=== PATIENT | male | born 1995 | race Caucasian/White ===

== ENCOUNTER 2017-10-08 06:06 | Emergency (ER) | payer MEDICAID, SELFPAY ==
[2017-10-08 06:13] VITALS: BP 155/87; PULSE 92; RESP 16; TEMP 36.8; O2SAT 94; BMI 46.3
--- NOTE | 2017-10-08 06:49 | HMH.EDEAR ---
ED Disposition Clinical Impression: Otitis media Qualifiers: Otitis media type: suppurative Chronicity: acute Laterality: right Recurrence: not specified as recurrent Spontaneous tympanic membrane rupture: without spontaneous rupture Qualified Code(s): H66.001 - Acute suppurative otitis media without spontaneous rupture of ear drum, right ear Disposition: Home, Self-Care Condition on Discharge: Good Instructions: DI for Otitis Media (Middle Ear Infection)-Child Additional Instructions: use meds and see pcp for follow up Prescriptions: cephALEXin [Keflex 500mg Cap] 500 mg PO TID #30 cap Referrals: Mihai Watts [Primary Care Provider] - - Critical Care Critical Care Time: No Attestation: On 10/08/17, the high probability of a clinically significant, sudden or life threatening deterioration of the following system(s) required my full and direct attention, intervention and personal management. The time I documented below is in addition to time spent performing reported procedures but includes the following listed in this critical care notation. Medical Decision Making - Medical Records Medical records reviewed: Yes: I reviewed the patient's medical records. Vital Signs: 10/08/17 06:13 Temperature 98.3 F Temperature Source Oral Pulse Rate [Right Brachial] 92 H Respiratory Rate 16 Blood Pressure [Right Arm] 155/87 Blood Pressure Mean [Right Arm] 109 Blood Pressure Source [Right Arm] Automatic Cuff Blood Pressure Position [Right Arm] Sitting 02 Sat by Pulse Oximetry 94 L Oxygen Delivery Method Room Air - Lab Data Lab results reviewed: Yes: I reviewed the patient's lab results. Orders (Tests/Meds): ORDERS Category Date Time Status Rapid Influenza A&B Antigens Stat Lab 10/08/17 06:27 Received - [place] Inquiry Pt receiving controlled substance: No Ear HPI - General Chief complaint: Ear Stated complaint: Right ear pain Time Seen by Provider: 10/08/17 06:49 Mode of Arrival: Ambulatory Source of Information: Patient, Relative, Medical Record Limitations: No Limitations Description of Symptoms (Recalled from ER Triage Doc. by RN): sinus congestion, sick for a week , right ear pain since this am - History of Present Illness HPI Narrative: 2 day hx of rt sided ear pain with uri sx but no rash or cough MD Complaint: ear pain Location: right ear Duration: intermittent Severity: moderate Relieving factors: nothing Context: recent illness Discharge from ear: no - Related Data Previous Rx's Medication Instructions Recorded cephALEXin [Keflex 500mg Cap] 500 mg PO TID #30 cap 10/08/17 Allergies Allergy/AdvReac Type Severity Reaction Status Date / Time No Known Allergies Allergy Unverified 09/23/17 14:57 [facility] History I have reviewed the patient's past medical history: Yes Medical History: Denies:: Cancer, Diabetes Mellitus Type 1, Diabetes Mellitus Type 2, MRSA Amputation: No - *Social History Educational Level: Completed High School Smoking Status: Never smoker Alcohol Intake: never - Psychiatric History Expresses thoughts of harming self/others: None Suicide Plan Description: No Plan ROS Obtained: Yes All systems reviewed & no additional complaints except as noted - Constitutional Denies fever(s) - Eyes Denies change in vision - ENT Reports ear pain, Denies ear discharge, Denies sore throat - Cardiovascular Denies chest pain - Respiratory Denies cough - Gastrointestinal Denies vomiting - Neurologic Denies dizziness Physical Exam - General General appearance: alert, in no apparent distress - Head Head exam: atraumatic - Eye Eye exam: Present: PERRL, EOMI - ENT ENT exam: Present: mucous membranes moist, other (rt tm red bulging ) - Neck Neck exam: Present: full ROM - Respiratory Respiratory exam: Absent: respiratory distress - Cardiovascular Cardiovascular exam: Present: regular rate - Abdominal Exam Abdominal
--- NOTE | 2017-10-08 06:54 | ED_ITS ---
ED Disposition Clinical Impression: Otitis media Qualifiers: Otitis media type: suppurative Chronicity: acute Laterality: right Recurrence: not specified as recurrent Spontaneous tympanic membrane rupture: without spontaneous rupture Qualified Code(s): H66.001 - Acute suppurative otitis media without spontaneous rupture of ear drum, right ear Disposition: Home, Self-Care Condition on Discharge: Good Instructions: DI for Otitis Media (Middle Ear Infection)-Child Additional Instructions: use meds and see pcp for follow up Prescriptions: cephALEXin [Keflex 500mg Cap] 500 mg PO TID #30 cap Referrals: Mihai Watts [Primary Care Provider] - - Critical Care Critical Care Time: No Attestation: On 10/08/17, the high probability of a clinically significant, sudden or life threatening deterioration of the following system(s) required my full and direct attention, intervention and personal management. The time I documented below is in addition to time spent performing reported procedures but includes the following listed in this critical care notation. Medical Decision Making - Medical Records Medical records reviewed: Yes: I reviewed the patient's medical records. Vital Signs: 10/08/17 06:13 Temperature 98.3 F Temperature Source Oral Pulse Rate [Right Brachial] 92 H Respiratory Rate 16 Blood Pressure [Right Arm] 155/87 Blood Pressure Mean [Right Arm] 109 Blood Pressure Source [Right Arm] Automatic Cuff Blood Pressure Position [Right Arm] Sitting 02 Sat by Pulse Oximetry 94 L Oxygen Delivery Method Room Air - Lab Data Lab results reviewed: Yes: I reviewed the patient's lab results. Orders (Tests/Meds): ORDERS Category Date Time Status Rapid Influenza A&B Antigens Stat Lab 10/08/17 06:27 Received - [place] Inquiry Pt receiving controlled substance: No Ear HPI - General Chief complaint: Ear Stated complaint: Right ear pain Time Seen by Provider: 10/08/17 06:49 Mode of Arrival: Ambulatory Source of Information: Patient, Relative, Medical Record Limitations: No Limitations Description of Symptoms (Recalled from ER Triage Doc. by RN): sinus congestion, sick for a week , right ear pain since this am - History of Present Illness HPI Narrative: 2 day hx of rt sided ear pain with uri sx but no rash or cough MD Complaint: ear pain Location: right ear Duration: intermittent Severity: moderate Relieving factors: nothing Context: recent illness Discharge from ear: no - Related Data Previous Rx's Medication Instructions Recorded cephALEXin [Keflex 500mg Cap] 500 mg PO TID #30 cap 10/08/17 Allergies Allergy/AdvReac Type Severity Reaction Status Date / Time No Known Allergies Allergy Unverified 09/23/17 14:57 [facility] History I have reviewed the patient's past medical history: Yes Medical History: Denies:: Cancer, Diabetes Mellitus Type 1, Diabetes Mellitus Type 2, MRSA Amputation: No - *Social History Educational Level: Completed High School Smoking Status: Never smoker Alcohol Intake: never - Psychiatric History Expresses thoughts of harming self/others: None Suicide Plan Description: No Plan ROS Obtained: Yes All systems reviewed & no additional complaints except as noted - Constitutional Denies fever(s) - Eyes
[2017-10-08 07:28] VITALS: BP 132/83; PULSE 86; RESP 16; TEMP 36.7; O2SAT 96
== END 2017-10-08 07:30 | disposition home or self-care (01) ==
PROVIDERS: Emergency Provider Emergency Medicine; Family Provider Emergency Medicine; PCP Internal Medicine
DX: H66.001 Acute suppurative otitis media without spontaneous rupture of ear drum, right ear (principal)
CPT/HCPCS: 87275; 87276; 99282

== ENCOUNTER 2021-08-09 19:36 | Emergency (ER) | payer SELFPAY ==
[2021-08-09 20:00] VITALS: BP 161/97; PULSE 89; RESP 18; TEMP 37.1; O2SAT 99; BMI 50.0
[2021-08-09 20:12] VITALS: BP 00/00; PULSE 0; RESP 0; TEMP -17.7; TEMP 0; O2SAT 0
== END 2021-08-09 20:21 | disposition left against medical advice (07) ==
LOC: ER 20:13
PROVIDERS: Emergency Provider Nurse Practitioner; PCP Internal Medicine
DX: Z53.21 Procedure and treatment not carried out due to patient leaving prior to being seen by health care provider (principal)
CPT/HCPCS: 99211

== ENCOUNTER → 2021-09-11 11:15 | Outpatient (CLI) | payer SELFPAY | PROVIDERS: PCP Internal Medicine; Visit Provider Nurse Practitioner | DX: U07.1 COVID-19 (principal) | CPT/HCPCS: C9803; U0003; U0005 ==

== ENCOUNTER 2022-01-05 06:34 | Emergency (ER) | payer SELFPAY ==
[2022-01-05 06:35] VITALS: BP 175/102; PULSE 102; RESP 18; TEMP 36.7; O2SAT 96; BMI 53.1
--- NOTE | 2022-01-05 06:49 | CT_ITS ---
PROCEDURE INFORMATION: Exam: CT Abdomen And Pelvis Without Contrast Exam date and time: 01/05/2022 7:06 AM Age: 26 years old Clinical indication: Abdominal pain; Flank; Left; Additional info: Left flank pain sudden onset -- R/O kidney stone or other TECHNIQUE: Imaging protocol: Computed tomography of the abdomen and pelvis without contrast. Radiation optimization: All CT scans at this facility use at least one of these dose optimization techniques: automated exposure control; mA and/or kV adjustment per patient size (includes targeted exams where dose is matched to clinical indication); or iterative reconstruction. COMPARISON: No relevant recent comparison exams are available. FINDINGS: PANCREATICOHEPATOBILIARY: Enlarged liver shows diffuse fatty infiltration. No significant intra-or extrahepatic ductal dilation. Gallbladder is contracted/incompletely distended. Pancreas and spleen are unremarkable. . GENITOURINARY: No adrenal mass. 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 Questionable nonobstructive punctate 1-2 mm renal calculi versus beam hardening/partial volume artifact. 2 mm distal LEFT ureteric calculus with mild/minimal LEFT sided hydronephrosis and hydroureter. Empty urinary bladder. No free fluid in the pelvis. . GASTROINTESTINAL: A few colonic diverticula. Bowel loops are otherwise unremarkable. No free air or fluid in the abdomen. A normal APPENDIX is visualized. . OTHER STRUCTURES: Aorta appears unremarkable without evidence of aortic aneurysm. Normal size and mildly enlarged mesenteric/retroperitoneal lymph nodes. Chronic degenerative changes in the visualized spine. IMPRESSION: 1. Obstructive distal LEFT ureteric calculus. 2. Hepatomegaly, fatty infiltration of the liver without cholelithiasis or acute cholecystitis. Recommend correlation with liver function tests. 3. Other nonemergent/incidental findings as described. COMMENTS: Suboptimal evaluation of bowel loops and abdominal organs due to extensive streak artifact from patient's arms within the field of scanning, motion artifact and due to lack of intravenous and oral contrast.
[2022-01-05 06:54] LABS: Microscopic, Urine URINE MICROSCOPIC (MICROSCOPIC)
[2022-01-05 06:56] LABS: Appearance,Urine SL CLOUDY (Clear); Bilirubin,Urine Negative (Negative); Blood, Urine 3+ (Negative); Color,Urine YELLOW (Yellow); Glucose,Urine (UA) Negative (Negative); Ketones,Urine Negative (Negative); Leukocyte Esterase,Urine Negative (Negative); Nitrate,Urine Negative (Negative); Protein,Urine Negative (Negative); Specific Gravity, Urine >= 1.030 (1.005-1.030); Urobilinogen,Urine 0.2 EU/dl (0.2)
--- NOTE | 2022-01-05 07:00 | HMH.EDGENADL ---
ED Disposition Clinical Impression: Renal colic on left side Disposition: Home, Self-Care Condition on Discharge: Good Instructions: DI for Kidney Stones Additional Instructions: use meds and fluids and see pcp and urology Prescriptions: Tamsulosin HCl [Flomax 0.4mg capsule] 0.4 mg PO HS #10 cap [id number] Ketorolac Tromethamine [Toradol 10mg tablet] 10 mg PO Q6HP PRN #12 tab MDD 40mg/day PRN Reason: Moderate To Severe Pain Transmission Status: [facility] Referrals: Mihai Watts [Primary Care Provider] - - Critical Care Critical Care Time: No Attestation: On 01/05/22, the high probability of a clinically significant, sudden or life threatening deterioration of the following system(s) required my full and direct attention, intervention and personal management. The time I documented below is in addition to time spent performing reported procedures but includes the following listed in this critical care notation. Medical Decision Making - Medical Records Medical records reviewed: Yes: I reviewed the patient's medical records. - [place] Inquiry Pt receiving controlled substance: No Vital Signs: 01/05/22 06:35 Temperature 98.0 F Temperature Source Oral Pulse Rate [Right] 102 H Respiratory Rate 18 Blood Pressure [Right Arm] 175/102 H Blood Pressure Mean [Right Arm] 126 02 Sat by Pulse Oximetry 96 - Lab Data Lab results reviewed: Yes: I reviewed the patient's lab results. Lab Results 01/05/22 06:40: Urine Color Yellow, Urine Appearance Sl cloudy, Urine pH 5.0, Ur Specific [place] >= 1.030, Urine Protein Negative, Urine Glucose (UA) Negative, Urine Ketones Negative, Urine Blood 3+, Urine Nitrate Negative, Urine Bilirubin Negative, Urine Urobilinogen 0.2, Ur Leukocyte Esterase Negative, Urine RBC 20-50, Urine WBC 3-5, Ur Squamous Epith Cells Occasional, Urine Bacteria 1+ 01/05/22 06:50: WBC 10.1, RBC 4.84, Hgb 14.9, Hct 44.3, MCV 91.5, MCH 30.8, MCHC 33.7, RDW 13.6, Plt Count 399, MPV 7.6, Neut % (Auto) 70.0, Lymph % (Auto) 23.3, [place] % (Auto) 4.5, Eos % (Auto) 1.0, Baso % (Auto) 1.1, Neut # (Auto) 7.1, Lymph # (Auto) 2.4, [place] # (Auto) 0.5, Eos # (Auto) 0.1, Baso # (Auto) 0.1, ESR 23 H 01/05/22 06:50: Sodium 138, Potassium 3.8, Chloride 105, Carbon Dioxide 27, Anion Gap 9.8, BUN 15, Creatinine 0.90, Estimated Creat Clear 104, Estimated GFR 102, Est GFR ( Amer) 123, Glucose 119 H, Calcium 8.3 L, Total Bilirubin 0.4, AST 42, ALT 61, Alkaline Phosphatase 101, C-Reactive Protein 14.4 H, Total Protein 7.6, Albumin 4.4, Globulin 3.2, Albumin/Globulin Ratio 1.4, Amylase 74, Lipase 101, Procalcitonin 0.081 Result diagrams: 01/05/22 06:50 01/05/22 06:50 Orders (Tests/Meds): ED MEDICATIONS Generic Name Dose Route Start Last Admin Trade Name Freq PRN Reason Stop Dose Admin Sodium Chloride 1,000 mls @ 999 mls/hr 01/05/22 07:00 01/05/22 07:00 Sod Chlor 0.9% 1000ml Bag IV 01/05/22 08:00 999 mls/hr .Q1H1M OWEN Administration Tamsulosin HCl 0.4 mg 01/05/22 21:00 Tamsulosin 0.4mg Capsule PO 02/04/22 20:59 HS OWEN Discontinued Medications Generic Name Dose Route Start Last Admin Trade Name Freq PRN Reason Stop Dose Admin Hydromorphone HCl 1 mg 01/05/22 07:33 01/05/22 07:33 Hydromorphone 2mg/Ml Syringe IV 01/05/22 07:34 1 mg ONCE ONE Administration Ketorolac Tromethamine 30 mg 01/05/22 06:56 01/05/22 07:00 Ketorolac 30mg/Ml Vial IV 01/05/22 06:57 30 mg ONCE ONE Administration Ondansetron HCl 4 mg 01/05/22 06:56 01/05/22 07:00 Ondansetron 4mg/2ml Vial IV 01/05/22 06:57 4 mg ONCE ONE Administration - CT Data CT Scan: Abdomen, Pelvis Time Received: 07:[address] Reviewed: Yes: I have viewed the radiologist's interpretation Preliminary Findings: Abnormal (lt renal colic ) Medical Decision Narrative: has acute lt renal colic with 2 mm stone General Adult HPI - Gen
[2022-01-05 07:02] LABS: Basophils # 0.1 K/mm3 (0-0.2); Basophils % 1.1 % (0.1-2.0); Eosinophils # 0.1 K/mm3 (0.0-0.4); Hematocrit 44.3 % (42.0-52.0); Hemoglobin 14.9 g/dL (14.1-18.0); Lymphocytes # 2.4 K/mm3 (0.7-4.5); Lymphocytes % 23.3 % (10-50); Mean Corpuscular HGB Conc 33.7 g/dL (31.8-35.4); Mean Corpuscular Hemoglobin 30.8 pg (27.0-31.2); Mean Corpuscular Volume 91.5 fl (80-94); Mean Platelet Volume 7.6 fl (7.4-10.4); Monocytes # 0.5 K/mm3 (0.1-1.0); Monocytes % 4.5 % (1.7-9.3); Neutrophils # 7.1 K/mm3 (1.8-7.8); Platelet Count 399 K/mm3 (142-424); Red Blood Count 4.84 M/mm3 (4.60-6.20); Red Cell Distribution Width 13.6 % (11.5-17.5); White Blood Count 10.1 K/mm3 (4.8-10.8)
[2022-01-05 07:10] LABS: RBC,Urine 20-50 #/hpf (0-3)
[2022-01-05 07:10] LABS: Chloride 105 mmol/L (98-107); Potassium 3.8 mmoL/L (3.5-5.1); Sodium 138 mmol/L (136-145)
[2022-01-05 07:11] LABS: Bacteria,Urine 1+ /lpf; Squamous Epithelial Cell,Urine Occasional #/hpf (0-5)
[2022-01-05 07:13] LABS: Alanine Aminotransferase 61 U/L (12-78); Albumin Level 4.4 g/dl (3.5-5.0); Albumin/Globulin Ratio 1.4 (1.1-1.8); Alkaline Phosphatase 101 U/L (38-126); Amylase 74 U/L (30-110); Anion Gap 9.8 mEq/L (5-15); Aspartate Amino Transferase 42 U/L (17-59); Bilirubin,Total 0.4 mg/dl (0.2-1.3); Blood Urea Nitrogen 15 mg/dl (9-20); Calcium 8.3 mg/dl (8.4-10.2); Carbon Dioxide 27 mmol/L (22.0-30.0); Creatinine Clearance Estimated 104 mL/min (50-200); Estimated Glomerular Filt Rate 102 ml/min (>60); GFR (African American) 123 ML/MIN (>60); Globulin 3.2 g/dL (1.3-3.2); Glucose 119 mg/dl (74-100); Lipase 101 U/L (23-300); Total Protein,Serum 7.6 g/dl (6.3-8.2)
[2022-01-05 07:19] LABS: C-Reactive Protein 14.4 mg/L (0-4)
[2022-01-05 07:25] LABS: Erythrocyte Sedimentation Rate 23 mm/hr (0-15)
[2022-01-05 07:46] LABS: Procalcitonin 0.081 ng/mL (0.0-2.0)
[2022-01-05 08:55] VITALS: BP 159/86; PULSE 94; RESP 17; TEMP 36.7; O2SAT 97
== END 2022-01-05 09:01 | disposition home or self-care (01) ==
PROVIDERS: Emergency Provider Emergency Medicine; PCP Internal Medicine
DX: N20.0 Calculus of kidney (principal); N23 Unspecified renal colic
CPT/HCPCS: 74176; 80053; 81001; 82150; 83690; 84145; 85025; 85651; 86140; 96361; 96365; 96374; 96375; 96376; 99284; J2405

== ENCOUNTER 2023-06-26 13:00 | Outpatient (RCR) | payer OTHER, SELFPAY | END 2023-06-26 13:05 | disposition home or self-care (01) | LOC: PT 13:00 | PROVIDERS: PCP Internal Medicine; Visit Provider Orthopaedic Surgery Adult Reconstructive Orthopaedic Surgery | DX: M25.572 Pain in left ankle and joints of left foot (principal); M76.822 Posterior tibial tendinitis, left leg | CPT/HCPCS: 97163 ==

== ENCOUNTER 2024-07-27 23:09 | Emergency (ER) | payer OTHER, SELFPAY ==
[2024-07-27 23:11] VITALS: BP 161/100; PULSE 109; RESP 16; TEMP 36.7; O2SAT 98; BMI 40.3
[2024-07-27 23:30] VITALS: BP 142/98; PULSE 89; RESP 18; O2SAT 98
--- NOTE | 2024-07-27 23:31 | ED_ITS ---
Discharge Plan Disposition Patient Disposition: Home, Self-Care Condition: Good Prescriptions Prescriptions: No Action tamsulosin 0.4 MG capsule 0.4 mg PO HS Qty: 10 0RF ketorolac 10 MG tablet 10 mg PO Q6HP MDD 40mg/day PRN (Reason: Moderate To Severe Pain) Qty: 12 0RF Rx Instructions: Therapy initiated with IV/IM dose cephalexin 500 MG capsule 500 mg PO TID Qty: 30 0RF Referrals Follow up/Referrals: Moreno Mobley DO [Staff Physician] - See instructions (L knee popping/occasional discomfort, hx gout, pt concerned for cartilage changes) Leah Ross APRN [Primary Care Provider] - See instructions Activity Restrictions/Add. Instructions Additional Instructions/Restrictions: You were evaluated in the ER and are appropriate for discharge at this time. Continue taking Tylenol, ibuprofen if needed for pain. Do not exceed the recommended dose on the bottle. Drink water and eat a snack each time you take these medications to prevent side effects. Call your primary care office for an appointment. They may want to prescribe physical therapy for you as well for additional strengthening and to keep you balanced. Call Dr. Mobley's office for an appointment for further evaluation and to consider possible MRI of the knee. Return to the ER with new, worsening, or otherwise concerning symptoms. Clinical Impressions Clinical Impression: Popping of left knee joint Print Language Print Language: Indonesian Discharge ED Provider: Crissy Hargrove General Adult HPI General Chief complaint: Extremity Injury, Lower Stated complaint: L knee pain, clicking when bending Time Seen by Provider: 07/27/24 23:21 Mode of Arrival: Ambulatory Source of Information: Patient Limitations: No Limitations Description of Symptoms (Recalled from ER Triage Doc. by RN): Patient complains of left knee pain. Says this is an ongoing issue but has got worse in the last 2-3 days; reports grinding/popping in knee when extending and walking History of Present Illness HPI narrative: 29-year-old male with history of gout, tendinitis in the ankle presents to the ER for complaints of left knee discomfort and abnormal sounds. He describes the pain as a dull ache. Patient states this has been an ongoing issue but popping seems to have gotten worse in the last few days. Patient reports creaking and popping in the left knee when walking. He states he walks with a cane secondary to tendinitis and gout. He has been taking ibuprofen for associated pain. He states he was very worried about his cartilage so he came up to the ER for evaluation. Patient has not had any falls, twists, or other traumatic injuries. There is no swelling, redness, heat. Patient denies fevers, chills, or other associated symptoms. Patient admits that he walks off balance secondary to problems in his foot/ankle on the side already. Related Data Previous Rx's ?Medication ?Instructions ?Recorded cephalexin 500 mg capsule 500 mg PO TID #30 caps 10/08/17 ketorolac 10 mg tablet 10 mg PO Q6HP PRN Moderate To 01/05/22 Severe Pain #12 tabs tamsulosin 0.4 mg capsule 0.4 mg PO HS #10 caps 01/05/22 Allergies Allergy/AdvReac Type Severity Reaction Status Date / Time No Known Allergies Allergy Unverified 09/23/17 14:[address] [facility] Disclaimer: The information contained in this section may have been updated after the patient was seen, as this information can be updated by other users. Social History Smoking Status: Current some day smoker alcohol intake: never current occupational status: other Travel in the last 8 weeks: None Other Medical History Have you received the Flu Vaccine for this season: No Have you received the Pneumonia Vaccine: No ROS Obtained: Yes Systems reviewed as appropriate & no additional complaints except as documented Positive ROS per HPI Physical Exam General General appearance: alert, in no apparent distress and obese Head Head exam: atraumatic and normocephalic Eye Eye exam: Present PERRL and EOMI ENT ENT exam: Present mucous membranes moist Neck Neck exam: Present normal inspection and full ROM Chest Chest inspection: Present symmetric chest wall rise Respiratory Respiratory exam: Absent respiratory distress or stridor Cardiovascular Cardiovascular exam: Present regular rate and normal rhythm Extremities Exam Extremities exam: Present full ROM (Full range of motion of the left knee, extensor mechanism intact), normal capillary refill and other (Neurovascularly intact distally); Absent tenderness, edema, joint swelling (No swelling or effusion appreciated, no ligamentous laxity of the LCL, MCL, ACL, or PCL appreciated, negative Carmen's lateral and medial) or calf tenderness Neurological Exam Neurological exam: Present alert and oriented X3; Absent motor sensory deficit Psychiatric Psychiatric exam: Present normal affect and normal mood Skin Skin exam: Present warm and dry Medical Decision Making Medical Records Screening: Per USPSTF and CDC recommendations, given the prevalence of disease in our region, it is our hospital?s policy to screen for HIV and viral Hepatitis for all patients aged 18 and over and those with ongoing risk factors. [place] Inquiry Pt receiving controlled substance: No Vital Signs: 07/27/24 23:11 07/27/24 23:30 Temperature 98.1 F Temperature Source Oral Pulse Rate 89 Pulse Rate [Right Radial] 109 H Respiratory Rate 16 18 Blood Pressure 142/98 H Blood Pressure [Right Arm] 161/100 H Blood Pressure Mean [Right Arm] 120 Blood Pressure Source Automatic Cuff Blood Pressure Source [Right Arm] Automatic Cuff Blood Pressure Position [Right Arm] Supine 02 Sat by Pulse Oximetry 98 98 Oxygen Delivery Method Room Air Room Air Medical Decision Narrative: In summary, 29-year-old male with history of gout, tendinitis presents to the ER for complaints of popping of the left knee as well as dull ache. On evaluation, patient is hemodynamically stable, afebrile, neurovascularly intact distal to the left knee, no swelling, no erythema, no reproducible tenderness, no ligamentous laxity, no deformity, no crepitus. No finding of acute traumatic injury. Differential diagnosis includes but is not limited to degenerative changes, I considered acute traumatic injury but have no evidence of this on exam or history. I considered gout however there is no erythema, effusion, or swelling of the knee. I considered meniscus injury but cannot elicit any popping or pain with Carmen's test. There is no finding of cellulitis, infection, or DVT on exam though these were also considered. Based on history and physical exam, I do not believe further workup is indicated at this time. I have no suspicion for bony injury given his history and exam and do not think x-rays would be beneficial. Patient admits that he walks off- center, compensating for other problems in the left leg which is likely exacerbating his knee symptoms. I encouraged him to follow-up with his PCP for referral to physical therapy. I also referred patient to orthopedics for further evaluation and possible advanced imaging if indicated. Patient was given instructions on symptomatic management, follow up instructions, and return precautions for the emergency department. Patient indicated understanding and was discharged in stable condition. Critical Care Critical Care Time Critical Care Time: No
[2024-07-27 23:33] VITALS: BP 158/88; PULSE 89; RESP 18; TEMP 36.7; O2SAT 98
== END 2024-07-27 23:34 | disposition home or self-care (01) ==
PROVIDERS: Emergency Provider Emergency Medicine; PCP Nurse Practitioner Family
DX: R29.898 Other symptoms and signs involving the musculoskeletal system (principal); M25.562 Pain in left knee
CPT/HCPCS: 99281

== ENCOUNTER 2024-08-03 13:16 | Outpatient (CLI) | payer OTHER, SELFPAY ==
--- NOTE | 2024-08-03 13:23 | XR_ITS ---
PROCEDURE INFORMATION: Exam: XR Left Knee Exam date and time: 08/03/2024 1:31 PM Age: 29 years old Clinical indication: Pain; Knee; Left; Additional info: Left knee pain TECHNIQUE: Imaging protocol: Radiologic exam of the left knee. Views: 3 views. COMPARISON: No relevant prior studies available. FINDINGS: Bones/joints: There is no evidence of acute fracture.There is no evidence of malalignment or dislocation. Soft tissues: Normal. IMPRESSION: There is no evidence of acute fracture.There is no evidence of malalignment or dislocation.
== END 2024-08-03 23:59 | disposition home or self-care (01) ==
LOC: RAD 13:21
PROVIDERS: PCP Nurse Practitioner Family; Visit Provider Orthopaedic Surgery
DX: M25.562 Pain in left knee (principal)
CPT/HCPCS: 73562

== ENCOUNTER 2024-08-24 02:32 | Emergency (ER) | payer OTHER, SELFPAY ==
--- NOTE | 2024-08-24 02:34 | HMH.EDGENADL ---
Discharge Plan Disposition Patient Disposition: Home, Self-Care Prescriptions Prescriptions: New prednisone 50 mg tablet 50 mg PO DAILY 4 Days Qty: 4 0RF albuterol sulfate 90 mcg/actuation HFA aerosol inhaler 2 inh inhalation Q4H PRN (Reason: shortness of breath or wheezing) Qty: 8.5 0RF No Action lidocaine HCl 10 mg/mL (1 %) solution 10 mg IJ ONCE Qty: 2 0RF triamcinolone acetonide [Kenalog] 40 mg/mL suspension 40 mg IJ ONCE Qty: 1 0RF tamsulosin 0.4 MG capsule 0.4 mg PO HS Qty: 10 0RF ketorolac 10 MG tablet 10 mg PO Q6HP MDD 40mg/day PRN (Reason: Moderate To Severe Pain) Qty: 12 0RF Rx Instructions: Therapy initiated with IV/IM dose cephalexin 500 MG capsule 500 mg PO TID Qty: 30 0RF Referrals Follow up/Referrals: Leah Ross APRN [Primary Care Provider] - See instructions Activity Restrictions/Add. Instructions Additional Instructions/Restrictions: Please use inhaler as needed. Please take steroids as prescribed. Please follow-up with your primary care provider. Please return to the emergency department if you develop any new or worsening symptoms or become concerned for your health. Clinical Impressions Clinical Impression: URI, acute Asthma exacerbation Qualifiers: Asthma severity: mild Asthma persistence: intermittent Qualified Code(s): J45.21 - Mild intermittent asthma with (acute) exacerbation Print Language Print Language: Mohawk Discharge ED Provider: Rodriguez Fang General Adult HPI General Chief complaint: Upper Respiratory Infection Stated complaint: congestion, cough, dizziness, sob, vomiting Time Seen by Provider: 08/24/24 02:34 History of Present Illness HPI narrative: 29-year-old male with history of asthma as a child presents for worsening shortness of breath. He reports that he has had nasal congestion, dry cough and worsening shortness of breath over the last 4 days. He reports that he had asthma as a child but has not really had any issues for many years. Denies fever at home. Related Data Previous Rx's ?Medication ?Instructions ?Recorded cephalexin 500 mg capsule 500 mg PO TID #30 caps 10/08/17 ketorolac 10 mg tablet 10 mg PO Q6HP PRN Moderate To 01/05/22 Severe Pain #12 tabs tamsulosin 0.4 mg capsule 0.4 mg PO HS #10 caps 01/05/22 albuterol sulfate 90 mcg/actuation 2 inh inhalation Q4H PRN shortness 08/24/24 aerosol inhaler of breath or wheezing #8.5 grams prednisone 50 mg tablet 50 mg PO DAILY 4 days #4 tabs 08/24/24 Allergies Allergy/AdvReac Type Severity Reaction Status Date / Time No Known Allergies Allergy Unverified 08/03/24 14:24 [facility] Disclaimer: The information contained in this section may have been updated after the patient was seen, as this information can be updated by other users. Social History Smoking Status: Current every day smoker alcohol intake: never current occupational status: other Travel in the last 8 weeks: None Other Medical History Have you received the Flu Vaccine for this season: No Have you received the Pneumonia Vaccine: No ROS Obtained: Yes All systems reviewed & no additional complaints except as documented Physical Exam General General appearance: alert and in no apparent distress Head Head exam: atraumatic and normocephalic Eye Eye exam: Present normal appearance, PERRL and EOMI ENT ENT exam: Present normal oropharynx and normal external ear exam Neck Neck exam: Present normal inspection and full ROM Chest Chest inspection: Present normal inspection and symmetric chest wall rise; Absent tenderness Respiratory Respiratory exam: Present wheezes (Mild diffuse expiratory wheezing with slightly prolonged expiratory phase); Absent respiratory distress Cardiovascular Cardiovascular exam: Present regular rate and normal rhythm Abdominal Exam Abdominal exam: Present soft; Absent distention, tenderness or guarding Extremities Exam Extremities exam: Present normal inspection; Absent edema or joint swelling Back Exam Back exam: Present normal inspection; Absent tenderness Neurological Exam Neurological exam: Present alert and oriented X3; Absent motor sensory deficit Psychiatric Psychiatric exam: Present normal affect and normal mood Skin Skin exam: Present warm, dry and normal color Lymphatic Lymphatic Findings: no adenopathy Medical Decision Making Medical Records Medical records reviewed: Yes I reviewed the patient's medical records. Screening: Per USPSTF and CDC recommendations, given the prevalence of disease in our region, it is our hospital?s policy to screen for HIV and viral Hepatitis for all patients aged 18 and over and those with ongoing risk factors. [place] Inquiry Pt receiving controlled substance: No [place] was queried for this patient: No Vital Signs: 08/24/24 02:39 08/24/24 03:17 08/24/24 03:17 Temperature 98.3 F Temperature Source Oral Pulse Rate 81 87 Pulse Rate [Right Brachial] 83 Respiratory Rate 20 Blood Pressure Blood Pressure [Right Arm] 150/97 H Blood Pressure Mean Blood Pressure Mean [Right Arm] 114 Blood Pressure Source Blood Pressure Source [Right Arm] Automatic Cuff 02 Sat by Pulse Oximetry 98 Oxygen Delivery Method Room Air 08/24/24 03:30 08/24/24 03:49 Temperature 98.3 F Temperature Source Oral Pulse Rate 106 H Pulse Rate [Right Brachial] Respiratory Rate 20 Blood Pressure 142/89 H 142/89 H Blood Pressure [Right Arm] Blood Pressure Mean 106 Blood Pressure Mean [Right Arm] Blood Pressure Source Automatic Cuff Blood Pressure Source [Right Arm] 02 Sat by Pulse Oximetry Oxygen Delivery Method Room Air Lab Data Lab results reviewed: Yes I reviewed the patient's lab results. Lab Results 08/24/24 02:45: SARS-CoV-2 (PCR) Not detected, Influenza A Untype (PCR) Not detected, Influenza Type B (PCR) Not detected Orders (Tests/Meds): ED MEDICATIONS Discontinued Medications Generic Name Dose Route Start Last Admin Trade Name Freq PRN Reason Stop Dose Admin Albuterol Sulfate 2 puff 08/24/24 03:31 Albuterol-Hfa 90mcg/Puff Inhaler 8gm 09/23/24 03:30 Q4HP PRN Shortness Of Breath Albuterol/Ipratropium 3 ml 08/24/24 02:38 08/24/24 03:16 Ipratropium/Albuterol 3 Ml Neb 08/24/24 02:39 3 ml ONCE ONE Administration Miscellaneous 1 unit 08/24/24 03:31 Aerochamber/Optihaler MC 08/24/24 03:32 ONCE ONE Prednisone 60 mg 08/24/24 03:31 Prednisone 20mg Tab PO 08/24/24 03:32 ONCE ONE ORDERS Category Date Time Status CXR 2 view (NOT portable) [XR chest 2V] Stat Exams 08/24/24 02:38 Completed Rapid PCR Covid and Flu A/B Stat Lab 08/24/24 02:45 Completed Medical Decision Narrative: 29-year-old male with history of asthma presents with 4 days of cough congestion and worsening shortness of breath.. History was obtained via interactive discussion with patient. On arrival, patient is [afebrile, hemodynamically stable, satting appropriately, alert, oriented x4, GCS 15], moving all extremities spontaneously. Full physical exam performed and significant for mild wheezing and prolonged expiratory phase in all lung nielson. Differential includes but is not limited to URI, viral/bacterial pneumonia, asthma exacerbation. Patient was given DuoNeb for symptomatic management and correction of underlying abnormalities. Workup initiated including 2 view chest x-ray, COVID flu swab. On re-evaluation, patient [remains afebrile, HD stable. Satting 100 percent on room air. he reports his dyspnea is mildly improved. He is wheezing is still present but certainly improved on my reassessment. Laboratory workup independently interpreted by me and significant for negative COVID and flu swab.. Imaging independently interpreted by me and significant for clear lungs bilaterally without focal opacity. See radiology read for full review of final results. Given patient history, exam and workup, patient's presentation most likely represents asthma exacerbation secondary to upper respiratory infection. Patient was given p.o. prednisone and albuterol inhaler and discharged with prescription for same. He was given strict return precautions. He was discharged in stable condition.. Procedures Risk/Benefits of Procedure(s) Were Explained: Yes Critical Care Critical Care Time Critical Care Time: No
--- NOTE | 2024-08-24 02:38 | XR_ITS ---
PROCEDURE INFORMATION: Exam: XR Chest Exam date and time: 08/24/2024 2:36 AM Age: 29 years old Clinical indication: Cough and shortness of breath; Additional info: Cough, SOA TECHNIQUE: Imaging protocol: Radiologic exam of the chest. Views: 2 views. COMPARISON: CT ABDOMEN PELVIS WO CON 01/05/2022 7:06 AM FINDINGS: Lungs: Unremarkable. No consolidation. Pleural spaces: Unremarkable. No pleural effusion. No pneumothorax. Heart/Mediastinum: Unremarkable. No cardiomegaly. Bones/joints: Unremarkable. IMPRESSION: No acute findings.
[2024-08-24 02:39] VITALS: BP 150/97; PULSE 83; RESP 20; TEMP 36.8; O2SAT 98
--- NOTE | 2024-08-24 02:43 | PC.NURSE ---
Pt awake alert and oriented x3 Skin pink warm and dry. Speech clear and appropriate. Wheezed auscultated in posterior lung nielson. Family at bedside
--- NOTE | 2024-08-24 02:47 | PC.NURSE ---
Pt ambulatory to xray
--- NOTE | 2024-08-24 02:51 | PC.NURSE ---
Pt's second tropnin drawn and sent to lab
--- NOTE | 2024-08-24 02:52 | PC.NURSE ---
Pt back from xray
[2024-08-24 02:53] LABS: Coronavirus 19, PCR Not Detected (NotDetected); Influenza A, PCR Not Detected (NotDetected); Influenza B, PCR Not Detected (NotDetected)
--- NOTE | 2024-08-24 03:04 | PC.NURSE ---
Respiratory here to give patient a breathing treatment
[2024-08-24] MEDS: IPRATROPIUM/ALBUTEROL 3 ML NEB IH (03:16)
[2024-08-24 03:17] VITALS: PULSE 81; PULSE 87
[2024-08-24 03:30] VITALS: BP 142/89
[2024-08-24 03:49] VITALS: BP 142/89; PULSE 106; RESP 20; TEMP 36.8; O2SAT 96
== END 2024-08-24 03:58 | disposition home or self-care (01) ==
PROVIDERS: Emergency Provider Emergency Medicine; PCP Nurse Practitioner Family
DX: J45.901 Unspecified asthma with (acute) exacerbation (principal); J06.9 Acute upper respiratory infection, unspecified; R09.81 Nasal congestion; R05.9 Cough, unspecified; R42 Dizziness and giddiness; R06.02 Shortness of breath; R11.10 Vomiting, unspecified; Z72.0 Tobacco use
CPT/HCPCS: 71046; 87636; 99284; J7620

== ENCOUNTER 2025-06-20 11:17 | Outpatient (CLI) | payer OTHER, SELFPAY ==
--- OUTSIDE RECORDS SUMMARY | 2025-04-14 04:56 | XMS_ITS | Continuity of Care Document ---
Author Organization [facility] Address [address] [place] [address] Phone Care Team Providers Care Nurse Anesthesia Program Director Name Role Phone Cody MSN, IN TUBE CONVERSION TECHNICIAN, Leah Unavailable Unavai lable Allergies, Adverse Reactions, Alerts Substance Reaction Status Criticality No Known Allergies Active No Inform ation Medications Medication Instructions Dosage Effective Dates (start - stop) Status Comments diclofenac sodium 75 mg tablet,delayed release take 1 tablet by oral route 2 times every day 75 MG - Active allopurinol 100 mg tablet take 1 tablet by oral route 2 times every day 100 MG - Active famotidine 20 mg tablet take 1 tablet by oral route 2 times every day 20 MG - Active valsartan 80 mg tablet take 1 tablet by oral route every day 80 MG - Active Arthricream 10 % topical apply to affected area two times daily as needed for pain. - Active loratadine 10 mg tablet take 1 tablet by oral route every day 10 MG - Active Flonase Allergy Relief 50 mcg/actuation nasal spray,suspension spray 1 - 2 spray by intranasal route every day in each nostril as needed 50-100 MCG - Active Advance Directives Directive Yes / No Effective Date File Name No Information Encounters Encounter Description Practice Location Reason(s) For Visit Diagnoses Date Provider [facility], [address] [place], [address], [place] tel:[phone] No Information 5 Cody Lynn. [address], [place], [id number] , . tel: [phone] [facility], [address] [place] [address], [address], tel:[phone] [place] Follow up on Labs, HTN, Gout (chief complaint) Body mass index [BMI] 45.0-49.9, adultEssential (primary) hypertensionGERD disease w/ esophagitis, w/o bleedingGout Oct 4 Ross Leah. [address] [place], [place], [id number] , [place]. tel: [phone] [facility], [address] [place] [address], [facility], tel:[phone] 72 [facility] [place] left foot pain (chief complaint)h ypertension (chief complaint)f almita vaccine (chief complaint)p rapare (chief complaint)d epression screening (chief complaint) Body mass index [BMI] 45.0-49.9, adultEncounter for immunizationPain in left ankle and joints of left footEssential (primary) hypertensionGoutGERD disease w/ esophagitis, w/o bleedingLow incomeDepression, unspecified Jun- 4 Ross Leah. [address] [place], [place], [id number] , . tel: [phone] [facility], [address] [place] [address], [address], tel:[phone] [facility] [place] CONGESTION (chief complaint) Essential (primary) hypertensionCOVID-19Lo w back pain, unspecifiedBody mass index [BMI] 50.0-59.9, adultEncounter for screening for COVID-19 Jun- 3 Ross Leah. [address] [place] [address], [id number] , . tel:[phone] [facility], [address] [place] [address], [address], tel:[phone] [place] foot/ankle pain (chief complaint) Pain in left ankle and joints of left footEssential (primary) hypertensionMorbid (severe) obesity due to excess calories 3 Orss Leah. [address] [place], [place], [id number] , . tel: [phone] [facility], [address] [place] [address], [facility], tel:[phone] [facility] [place] CONGESTION (chief complaint) Encounter for screening for depressionEncounter for screening examination for other mental health and behavioral disordersMorbid (severe) obesity due to excess caloriesEssential (primary) hypertensionAnxiety disorder, unspecifiedAcute sinusitisBody mass index [BMI] 50.0-59.9, adult 3 Ross Leah. [address] [place], [place], [id number] , . tel: [phone] [facility], [address] [place] [address], [facility], tel:[phone] [facility] [place] Blurry vision (chief complaint)C ough (chief complaint)S ore throat (chief complaint)H eadache (chief complaint)E arache (chief complaint)C OVID TEST (chief complaint) Acute bronchitisOtitis media, unspecified, right earAnxiety disorder, unspecifiedEssential (primary) hypertensionEncounter for screening for COVID-19Body mass index [BMI] 50.0-59.9, adult 2 Ross Leah. [address] [place], [place], [id number] , . tel: [phone] [facility], [address] [place] [address], [facility], tel:[phone] [facility] [place] Encounter for screening examination for other mental health and behavioral disordersPersons encountering health services in other specified circumstancesAnxiety disorder, unspecifiedDepression, unspecifiedEncounter for screening for depression 2 Cody Lynn. [address] [place], [place], [id number] , [place]. tel: [phone] [facility], [address] [place], [address], [place] tel:[phone] [facility] No Information 2 Cody Lynn. [address] [place], [place], [id number] , [place]. tel: [phone] Family History Family Member Type Diagnosis Age At Onset Brother Problem attention deficit hyperactiv ity disorder Mother Problem depression Sister Problem 25 yrs old Brother Problem Anxiety, OCD, 21 yrs old Brother Problem depression Mother Problem Anxiety, Multiple Sclerosis Father Problem Liver Failure Mother Problem Alive and well Brother Problem 17 yrs old Brother Problem Alive and well Immunizations Vaccine Date Status Comments Influenza virus vaccine, trivalent (IIV3), split virus, preservative free, 0.5 mL dosage, for intramuscular use administered Source: Ne w Immunization Record Moderna refused Source: New Imm unization Record Influenza Flulaval refused Source: N ew Immunization Record COVID-19 Vector-NR (UVALDON) administered Jaimee rce: Other Registry Influenza, Seasonal administered Source: Other Registry Tdap, Adsorbed administered Source: Other Registry Polio-IPV administered Source: Other R egistry MMR administered Source: Other R egistry DTaP, UF administered Source: Other R egistry Payers Payer name Insurance type Covered libertarian ID Authoriza tion(s) H[place]- Medicaid Aetna [facility] [place] [id number] H[place]- Medicaid Aetna W[place] Payer [id number] Hch- Medicaid [employer]et[employer] [facility] [place] [id number] Hch- Medicaid Aetna W[place] Payer [id number] [place]- Medicaid [place]et[place] [facility] [place] [place] [id number] Hch- Medicaid Aetna Wrap Payer [id number] Social History Type Description Quantity Date Captured Comments Alcohol Use Details Unknown Caffeine Use Details Unknown Tobacco Use Status No Information Smoking Status No Information Sex Male Sexual Orientation Straight or heterosexual Gender Identity Male Chief Complaint And Reason For Visit No Information Plan Of Treatment Date Type Action Status Goal CBC. Due on due Goal Tobacco Use Screening. Due o n due Goal Hepatitis C Screening due Goal Unhealthy drug use screening due Goal Drug Abuse Scree kailey Test (DAST-10). Due on due Goal Influenza vaccine. Due on due Goal Generalized Anxi ety Disorder - 7 (ANA-7). Due on due Goal Vitamin D. Due on due Goal Tobacco Use Cessation Counse ling. Due on due Goal Depression screening. Due on due Goal CMP. Due on due Goal Obtain Height, Weight, and B VA. Due on due Goal Diabetes screening. Due on S due Goal Drug Abuse Screening Test (D AST). Due on due Goal HIV screen due Goal Tobacco screening. Due on due Goal Vitamin B12. Due on due Goal Follow up Plan f or abnormal BMI (Less than 18.5, greater than 25). Due on due Goal Obtain blood Pressure. Due o n due Goal ECG. Due on due Goal Urinalysis. Due on due Goal Lipid panel. Due on due Goal Hepatitis C Screening due Goal Vitamin D. Due on due Goal CBC. Due on due Goal CMP. Due on due Goal Generalized Anxi ety Disorder - 7 (ANA-7). Due on due Goal Diabetes screening. Due on due Goal Follow up Plan f or abnormal BMI (Less than 18.5, greater than 25). Due on due Goal Unhealthy drug use screening due Goal Depression screening. Due on due Goal Drug Abuse Scree kailey Test (DAST-10). Due on due Goal HIV screen due Goal Tobacco Use Screening. Due o n due Goal Influenza vaccine. Due on due Goal Tobacco Use Cessation Counse ling. Due on due Goal Vitamin B12. Due on due Goal Drug Abuse Screening Test (D AST). Due on due Goal Obtain Height, Weight, and B VA. Due on due Goal Lipid panel. Due on 035 due Goal Obtain blood Pressure. Due o n due Goal ECG. Due on due Goal Urinalysis. Due on 24 due Goal Lifestyle education regardin g diet completed Goal Vitamin B12. Due on due Goal Obtain Height, Weight, and B VA. Due on due Goal Hepatitis C Screening due Goal Tobacco Use Screening. Due o n due Goal Generalized Anxi ety Disorder - 7 (ANA-7). Due on due Goal Follow up Plan f or abnormal BMI (Less than 18.5, greater than 25). Due on due Goal Depression screening. Due on due Goal Vitamin D. Due on due Goal CMP. Due on due Goal Lipid panel. Due on 035 due Goal Drug Abuse Scree kailey Test (DAST-10). Due on due Goal Influenza vaccine. Due on due Goal Drug Abuse Screening Test (D AST). Due on due Goal HIV screen due Goal Diabetes screening. Due on due Goal Unhealthy drug use screening due Goal CBC. Due on due Goal Urinalysis. Due on 24 due Goal Obtain blood Pressure. Due o n due Goal ECG. Due on due Goal Lifestyle education regardin g diet completed Goal Tobacco Use Cessation Counse ling. Due on due Goal Influenza vaccine. Due on due Goal CBC. Due on due Goal Hepatitis C Screening due Goal Vitamin D. Due on due Goal HIV screen due Goal Vitamin B12. Due on 024 due Goal CMP. Due on due Goal Obtain Height, Weight, and B VA. Due on due Goal Tobacco Use Screening. Due o n due Goal Drug Abuse Scree kailey Test (DAST-10). Due on due Goal Depression screening. Due on due Goal Follow up Plan f or abnormal BMI (Less than 18.5, greater than 25). Due on due Goal Drug Abuse Screening Test (D AST). Due on due Goal Diabetes screening. Due on due Goal Generalized Anxi ety Disorder - 7 (ANA-7). Due on due Goal Unhealthy drug use screening due Goal ECG. Due on due Goal Urinalysis. Due on 23 due Goal Obtain blood Pressure. Due o n due Goal Lifestyle education regardin g diet completed Goal Generalized Anxi ety Disorder - 7 (ANA-7). Due on due Goal Obtain Height, Weight, and B VA. Due on due Goal Drug Abuse Scree kailey Test (DAST-10). Due on due Goal HIV screen due Goal Tobacco Use Screening. Due o n due Goal Diabetes screening. Due on due Goal Follow up Plan f or abnormal BMI (Less than 18.5, greater than 25). Due on due Goal Hepatitis C Screening due Goal Unhealthy drug use screening due Goal Influenza vaccine. Due on due Goal Vitamin D. Due on due Goal CMP. Due on due Goal CBC. Due on due Goal Vitamin B12. Due on due Goal Depression screening. Due on due Goal Drug Abuse Screening Test (D AST). Due on due Goal Obtain blood Pressure. Due o n due Goal Urinalysis. Due on due Goal ECG. Due on due Goal Generalized Anxi ety Disorder - 7 (ANA-7). Due on due Goal HIV screen. Due on due Goal Influenza vaccine. Due on due Goal Depression screening. Due on due Goal Drug Abuse Screening Test (D AST). Due on due Goal CBC. Due on due Goal CMP. Due on due Goal Diabetes screening. Due on due Goal Drug Abuse Scree kailey Test (DAST-10). Due on due Goal Follow up Plan f or abnormal BMI (Less than 18.5, greater than 25). Due on due Goal Hepatitis C Screening. Due o n due Goal Obtain Height, Weight, and B VA. Due on due Goal Tobacco Use Cessation Suzie elena. Due on due Goal Tobacco Use Screening. Due o n due Goal Unhealthy drug use screening due Goal Vitamin B12. Due on 023 due Goal ECG. Due on due Goal Obtain blood Pressure. Due o n due Goal Urinalysis. Due on 23 due Goal Vitamin D. Due on 3 due Goal Lifestyle education regardin g diet completed Goal Influenza vaccine. Due on due Goal Generalized Anxi ety Disorder - 7 (ANA-7). Due on due Goal Drug Abuse Screening Test (D AST). Due on due Goal Depression screening. Due on due Goal HIV screen. Due on due Goal Dietary management education , guidance, and counseling completed Goal Drug Abuse Screening Test (D AST). Due on due Goal Depression screening. Due on due Goal HIV screen. Due on due Goal Influenza vaccine. Due on due Goal Generalized Anxi ety Disorder - 7 (ANA-7). Due on due Referral Referred To: [facility] Ordered: Referrals: Orthopedic Surgery. [facility]. Location: [place]. Evaluate and treat Appointment date/timeframe: 06/04/2023 ordered History Of Present Illness Encounter Date Complaint History Of Prese nt Illness Follow up on Labs, HTN, Gout Willie linda is here today to follow up on his recent lab results, gout and HTN. BP today is 123/81. Pt stated he has increased anxiety today, which he reports is normal for doctor's visits. He also reported that his gout is better but is still there. Uric acid was 6.1Will start allopurinol 100 mg bid for next few months Repeat uric acid in 3 months- along w/ fasting labsvit D is low at 16.3- will start weekly supplementsunshine encouragedTSH okTotal Cholesterol 158, HDL 38, LDL 38, and Trigs 233CMP, CBC okGerd symptoms improved with omeprazole and diet changes cale Rasmussen complete d on 07/01/2024. - INDERJIT,WANDY depression screening Depression screening completed on 07/01/2024. Patient scored a 20, provider made aware. - WANDY JANSEN left foot pain Onset: 1 week ag o. It occurs constantly and is worsening. Location: left great toe. There is no radiation. The pain is burning and sharp. The pain is aggravated by bending and walking. Associated symptoms include joint tenderness and limping. Additional information: left great toe pain- red, swollen and painful to touch. No accident or injury. hypertension The HTN started in 2022. The symptoms began gradually. The severity has been described as being mild-moderate. It is currently stable. Risk factors include depression, high salt intake, inactive lifestyle, male gender and obesity. Pertinent negatives include chest pain, claudication, dyspnea, fatigue, headache, nausea and vomiting. flu vaccine agreeable to flu vaccine todayscreening forms completed and in flu binder CONGESTION Pavel is here to day with fever, chills, cough and congestion x yesterday. Started quickly and get worse. Has low back ache+ for covid 19 in office todayHTN- has not had meds this amtakes at nightin painwill reassess in 2 weeks once well and over covid foot/ankle pain Pavel is here to day for left ankle/foot pain x 1 year.It has become worse over the year.no accident/injurySwells at night, and after standing for 5+ hourswears good supporting shoesdifficulty walking r/t painstates he is using a cane by the end of the weekuses ibuprofen- doesn't really helpepsome salt soakshas tried icenothing seems to help muchHypertensive in office todayhigh anxiety at the doctor's officereports compliance with valsartan- increasing does todayinstructed to rtc in 1 monthlow sodium diet- dash dietexercise as tolerated- difficulty w/ sore left ankleweight loss recommended. Denies cp, osorio, dizziness, soa. CONGESTION Pavel is here to day due to sinus congestion, headache, cough and right ear pain. Pt states that the sinus congestion started 1 week ago and continues to get worse. He is not experiencing daily headaches that increase in pain when he coughs or bends forward. Pt states that the right ear pain started yesterday.Pt was supposed to follow up after last office visit due to high blood pressure readings in the office but did not RTC. Today blood pressure in right arm is 139/97 while sitting with a large adult cuff. Blood pressure recheck in left arm is 141/95 while sitting with a large adult cuff. Pt states that it always run this high and he doesn't take anything for it, despite starting losartan at last visit almost 1 year ago. He has multiple excuses for not making lifestyle changes in regaurds to diet and exercise. He states he is afraid of htn. Risk and poor outcomes discussed with continued uncontrolled htn. Diet education and lifestyle changes discussed. New pt labs collected today, he is fasting. He had not returned in past for collection and was hesitant today for collection. Pt scheduled to RTC in 2 weeks to follow up on lab results. Pt aware of appointment. Cough Onset: 3 days ag o. Severity: mild-moderate. The patient describes the cough as dry and non-productive. It occurs occasionally. The problem has improved. Context: sick family member and Sinus Infection. Symptoms are aggravated by lying down. Relieving factors include decongestants and Vicks Sinus and Advil Sinus. Associated symptoms include cough, fever, nasal congestion, sinus pressure and sore throat. Pertinent negatives include chills and fatigue. Blurry vision Onset: 2 Days. T he severity of the problem is moderate. The problem has not changed. Symptoms are not associated with recent swimming. Aggravating factors include movement. Symptoms are not aggravated by light or Dizzeness. Associated symptoms include blurred vision, headache, sore throat and vomiting. Additional information: Blurry vision occurs with dizziness and movement. It goes away when he sits still. Ear Pain. Sore throat Onset: 3 Days. T he severity of the problem is mild. The problem is improving. The symptoms are occasional. Symptoms are not associated with history of allergies. Symptoms are not aggravated by coughing. Symptoms are relieved by decongestants. Associated symptoms include cough, fever, headache, nasal congestion and sinus pressure. Pertinent negatives include fatigue. Additional information: Pt thinks he had a fever last night. His temp today is 98.3. No Tylenol or Ibuprofin taken today. Headache Onset: 2 Days. T he severity of the problem is moderate. Pain scale: 6/10. The problem has worsened. The symptoms are constant. Locations affected include left frontal, left temporal and bilateral ocular. Headache timing includes no pattern. Symptoms are not associated with recent head trauma, recent MVA and stress. Aggravating factors include anxiety. Symptoms are not aggravated by allergies, bright lights and coughing. Denies relieving factors. Associated symptoms include blurred vision, dizziness, fever, nausea, vertigo and vomiting. Additional information: Pt descibes the headache as a heavy wt on his head in certain areas. Earache Onset: 1 day ago . Severity level is 7. Duration: 1 Day. The patient states the earache is in both ears. The problem is worse. Symptom is aggravated by coughing, lying down and severe sharp pain when laying down and coughing. Relieving factors include decongestants. Associated symptoms include congestion (nasal), cough, dizziness, ear pressure, fever, fullness in ears, nausea and vomiting. Pertinent negatives include ringing in ears. COVID TEST COVID TEST COMPL ETED. RESULT: NEGATIVE Instructions Date Instruction Additional Infor shauna Physical activity as tolerated. Try to engage in some form of moderate physical activity for 30 minutes most days of the week. May modify activity as needed to reduce discomfort. Try to achieve/maintain a healthy body weight to reduce strain on musculoskeletal system. Verbalizes an understanding. Related to Body mass index [BMI] 45.0-49.9, adult Low purine diet. Glen id sodas and caffeine. Take medications as directed Related to Gout Patient currently do ing well. BP in goal range. No medication changes. Patient instructed to follow a low salt diet, continuing taking blood pressure medications as prescribed. Keep routine follow up with clinic. Related to Essential (primary) hypertension Counseled patients o n medications for reflux. Discussed lifestyle modifications including but not limited to elevating the head of the bed, limiting fatty, greasy, spicy food intake. Avoid heavy meals and caffeine intake within 2 hours of bedtime. If applicable, reduce/discontinue tobacco use and/or alcohol use, as both can make reflux symptoms worse. Related to GERD disease w/ esophagitis, w/o bleeding Giving encouragement to exercise Related to Body mass index [BMI] 45.0-49.9, adult Lifestyle education regarding di et Related to Body mass index [BMI] 45.0-49.9, adult Counseled patients o n medications for reflux. Discussed lifestyle modifications including but not limited to elevating the head of the bed, limiting fatty, greasy, spicy food intake. Avoid heavy meals and caffeine intake within 2 hours of bedtime. If applicable, reduce/discontinue tobacco use and/or alcohol use, as both can make reflux symptoms worse.May use famotidine 20 mg bid as needed after completion of omeprazole Related to GERD disease w/ esophagitis, w/o bleeding FLu vaccine given to dayYou may have some mild discomfort, chills, or a sore arm in the next 24 hrs. If needed you may take tylenol per packing instructions Related to Encounter for immunization Dietary Instructions for a healthy weight: BMI should be between the range of 18.5-24.9 for an adult; and Caloric intake should be around 9004-9983 for a female, and 9249-8275 for an adult male. Fiber intake should be about 14 grams for 1000 calories per day. That is about 20-30 grams daily. Good sources of fiber are oatmeal, fortified grains, and green leafy vegetables, apples. You can also use Carbohydrate counting to maintain a healthy weight. One serving is equal to 15 grams (1 piece of bread, small fruit, or 1 cup of milk). Men should have 45-75, Women about 30-65 per meal, and snacks are recommend to be 13-30 grams each. Myplate.gov is a good source for meal planning and dietary education. You may also refer to the [place] [employer] website for further low sodium, health heart diet information. Mediterainian diet would be a suitable diet for your current health conditions. Physical activity as tolerated. Try to engage in some form of moderate physical activity for 30 minutes most days of the week. May modify activity as needed to reduce discomfort. Try to achieve/maintain a healthy body weight to reduce strain on musculoskeletal system. Verbalizes an understanding. Related to Body mass index [BMI] 45.0-49.9, adult Patient instructed o f the importance of taking medications as prescribed, following a low salt diet as well as getting physical activity as tolerated. Patient advised to keep BP log daily checking each morning and before bed. Patient to call the clinic if systolic blood pressure is greater than 150 and/or diastolic blood pressure is staying greater than 90. Related to Essential (primary) hypertension rest, ice, compressi on as instructed to reduce joint pain and swelling Related to Pain in left ankle and joints of left foot Giving encouragement to exercise Related to Body mass index [BMI] 45.0-49.9, adult Lifestyle education regarding di et Related to Body mass index [BMI] 45.0-49.9, adult Drink plenty of flui ds. Take rest. Monitor oxygen saturation and heart rate. Go to the ER if resting oxygen saturation stays below 88%, or if any AMS, worsening dyspnea, chest pain, or other concerning symptoms. Verbalizes an understanding of all. Related to COVID-19 Patient instructed o n appropriate use of medications prescribed for back pain. Discussed conservative measures such as heat, ice, gentle strength stretching, and core muscle strengthening. Avoid heavy lifting, pulling, or tugging. Contact the clinic if any worsening or new symptoms related to back pain occur. Related to Low back pain, unspecified Patient instructed o f the importance of taking medications as prescribed, following a low salt diet as well as getting physical activity as tolerated. Patient advised to keep BP log daily checking each morning and before bed. Patient to call the clinic if systolic blood pressure is greater than 150 and/or diastolic blood pressure is staying greater than 90. Related to Essential (primary) hypertension Giving encouragement to exercise Related to Body mass index [BMI] 50.0-59.9, adult Lifestyle education regarding di et Related to Body mass index [BMI] 50.0-59.9, adult Physical activity as tolerated. Try to engage in some form of moderate physical activity for 30 minutes most days of the week. May modify activity as needed to reduce discomfort. Try to achieve/maintain a healthy body weight to reduce strain on musculoskeletal system. Verbalizes an understanding. Related to Morbid (severe) obesity due to excess calories Patient instructed o n appropriate use of medications prescribed for pain. Discussed conservative measures such as heat, ice, gentle strength stretching, and elevation when not in ambulation.Compression stockings may be helpful while at work and long hours of standing. Referral to [facility] for further evaluation.Apply diclofenac gel two times daily or prn, or emu oil-blueMay use OTC ibuprofen as needed and per packing instructions, but NOT while taking prednisonePrednisone dose pack as instructed. Related to Pain in left ankle and joints of left foot Patient instructed o f the importance of taking medications as prescribed, following a low salt diet as well as getting physical activity as tolerated. Patient advised to keep BP log daily checking each morning and before bed. Patient to call the clinic if systolic blood pressure is greater than 150 and/or diastolic blood pressure is staying greater than 90. Increase Valsartan to 80 mg daily and RTC 1 month for f/u. Related to Essential (primary) hypertension Discussed stress red uction techniques. Take medications as prescribed. Limit caffeine and nicotine. Try to follow a set sleep schedule. Get daily moderate exercise if able to tolerate. Related to Anxiety disorder, unspecified Dietary Instructions for a healthy weight: BMI should be between the range of 18.5-24.9 for an adult; and Caloric intake should be around 6238-8996 for a female, and 7433-3698 for an adult male. Fiber intake should be about 14 grams for 1000 calories per day. That is about 20-30 grams daily. Good sources of fiber are oatmeal, fortified grains, and green leafy vegetables, apples. You can also use Carbohydrate counting to maintain a healthy weight. One serving is equal to 15 grams (1 piece of bread, small fruit, or 1 cup of milk). Men should have 45-75, Women about 30-65 per meal, and snacks are recommend to be 13-30 grams each. [employer] is a good source for meal planning and dietary education. You may also refer to the [place] [employer] website for further low sodium, health heart diet information. [place]iter[place] diet would be a suitable diet for your current health conditions. Weight loss is recommend. Being active is an essential part of being healthy. Physical activity as tolerated. Try to engage in some form of moderate physical activity for 30 minutes most days of the week. May modify activity as needed to reduce discomfort. Try to achieve/maintain a healthy body weight to reduce strain on musculoskeletal system. Verbalizes understanding. Related to Morbid (severe) obesity due to excess calories Take rest. Drink ple nty of fluids. Uses saline sinus rinses. Use prescription and/or OTC medications for symptom relief as instructed. RTC for worsening URI symptoms. If develops high and/or persistent fever, chills, shortness of breath, severe cough, will need urgent evaluation. Verbalizes an understanding. Related to Acute sinusitis Patient instructed o f the importance of taking medications as prescribed, following a low salt diet as well as getting physical activity as tolerated. Patient advised to keep BP log daily checking each morning and before bed. Patient to call the clinic if systolic blood pressure is greater than 150 and/or diastolic blood pressure is staying greater than 90. Related to Essential (primary) hypertension Giving encouragement to exercise Related to Morbid (severe) obesity due to excess calories Lifestyle education regarding di et Related to Morbid (severe) obesity due to excess calories Giving encouragement to exercise Related to Essential (primary) hypertension Window/Distribution Clerk educati on, guidance, and counseling (procedure) Related to Essential (primary) hypertension Take all antibiotics until complete. May take with food to ease stomach irritation. If you experience frequent yeast infections, you may consider taking an OTC probiotic while taking antibiotics, or eating yogurt with active cultures. Related to Otitis media, unspecified, right ear Start taking Valsart an 40 mg dailyRTC for fasting labs Diet modification and recommended increasing activity Related to Essential (primary) hypertension Discussed stress red uction techniques. Take medications as prescribed. Limit caffeine and nicotine. Try to follow a set sleep schedule. Get daily moderate exercise if able to tolerate. Related to Anxiety disorder, unspecified Covid test negHome k it w/ pt to repeat testing in 2 days Related to Encounter for screening for COVID-19 Diet modification to include reduced consumption, avoidance of simple carbohydrates, sugary foods, fast foods.Increase fiber and vegetables to your dietExercise daily: 30 min daily at least 5 days weeklyRTC 2 weeks for BP check and diet counsling Related to Body mass index [BMI] 50.0-59.9, adult Covid 19 testing neg ative here todayHome kit given to pt- re-test in 2 daysUse HFA inhaler as instructions for wheezing, or continuous coughDepo 80 injection todayTake all antibiotics until completeIf not improving as expected, RTC Related to Acute bronchitis Giving encouragement to exercise Related to Body mass index [BMI] 50.0-59.9, adult Dietary management e ducation, guidance, and counseling Related to Body mass index [BMI] 50.0-59.9, adult Assessments Type Assessment Date No Information
[2025-06-20 15:37] LABS: Hematocrit 42.9 % (42.0-52.0); Hemoglobin 14.4 g/dL (14.1-18.0); Immature Granulocytes % 0.2 %; Mean Corpuscular HGB Conc 33.6 g/dL (31.8-35.4); Mean Corpuscular Hemoglobin 31.0 pg (27.0-31.2); Mean Corpuscular Volume 92.3 fl (80-94); Nucleated Red Blood Cells % 0 %; Platelet Count 163 K/mm3 (142-424); Red Blood Count 4.65 M/mm3 (4.60-6.20); Red Cell Distribution Width-SD 49.1 fL; White Blood Count 5.5 K/mm3 (4.8-10.8)
[2025-06-20 18:03] LABS: Albumin Level 4.5 g/dl (3.5-5.0); Chloride 104 mmol/L (98-107); Potassium 4.8 mmoL/L (3.5-5.1); Sodium 141 mmol/L (136-145)
[2025-06-20 18:05] LABS: Alanine Aminotransferase 23 U/L (12-78); Blood Urea Nitrogen 13 mg/dl (9-20); Creatinine,Serum 0.90 mg/dl (0.66-1.25); Estimated Glomerular Filt Rate 99 ml/min (>60); GFR (African American) 120 ML/MIN (>60)
[2025-06-20 18:06] LABS: Albumin/Globulin Ratio 1.5 (1.1-1.8); Alkaline Phosphatase 80 U/L (38-126); Anion Gap 13.8 mEq/L (5-15); Aspartate Amino Transferase 29 U/L (17-59); Bilirubin,Total 0.6 mg/dl (0.2-1.3); Calcium 9.3 mg/dl (8.4-10.2); Carbon Dioxide 28 mmol/L (22.0-30.0); Cholesterol 169 mg/dl (140-200); Globulin 3.1 g/dL (1.3-3.2); Glucose 100 mg/dl (74-100); HDL Cholesterol 35 mg/dl (40-60); Total Protein,Serum 7.6 g/dl (6.3-8.2); Triglycerides 123 mg/dl (30-150)
[2025-06-20 18:24] LABS: Free T4 (Free Thyroxine) 1.45 ng/dl (0.78-2.19)
[2025-06-20 18:33] LABS: Thyroid Stimulating Hormone 2.02 uIU/mL (0.465-4.68)
== END 2025-06-20 23:59 ==
LOC: LAB.DROPOF 06-21 10:33
PROVIDERS: PCP Family Medicine; Visit Provider Family Medicine
DX: B35.1 Tinea unguium (principal); R63.4 Abnormal weight loss; E66.9 Obesity, unspecified; Z68.39 Body mass index [BMI] 39.0-39.9, adult
CPT/HCPCS: 80053; 80061; 84439; 84443; 85025

== ENCOUNTER 2025-06-29 09:58 | Outpatient (CLI) | payer OTHER, SELFPAY ==
--- NOTE | 2025-06-29 10:02 | XR_ITS ---
FINAL REPORT CLINICAL HISTORY: pain X YEARS // NO KNOWN INJURY // BEST IMAGES POS FINDINGS: AP, lateral and oblique views of the left knee were obtained. There is no prior exam for comparison. There is no acute osseous abnormality of the left knee. The joint space is preserved. The soft tissues are normal. There is no joint effusion. IMPRESSION: No acute osseous abnormality of the left knee. Reviewed, Interpreted and Dictated by Piper Teague MD Transcribed by Susie Leon Authenticated and [facility]
--- NOTE | 2025-06-29 10:02 | XR_ITS ---
FINAL REPORT CLINICAL HISTORY: pain X YEARS / NO KNOWN INJURY FINDINGS: AP and lateral views of the lumbar spine were obtained. There is no prior exam for comparison. There is no acute fracture or malalignment. Vertebral body height is preserved. Disc space height is preserved. No acute paraspinal abnormality. IMPRESSION: No acute osseous abnormality of the lumbar spine. Reviewed, Interpreted and Dictated by Piper Teague MD Transcribed by Susei Leon Authenticated and [facility]
== END 2025-06-29 23:59 | disposition home or self-care (01) ==
LOC: RAD 09:59
PROVIDERS: PCP Family Medicine; Visit Provider Family Medicine
DX: M54.50 Low back pain, unspecified (principal); M25.562 Pain in left knee
CPT/HCPCS: 72100; 73562